=== PATIENT | female | born 1965 | race Two or more races ===

== ENCOUNTER 2018-04-08 09:53 | Day surgery (SDC) | payer OTHER ==
[2018-04-08] MEDS ORDERED: PROPOFOL 40 ML (11:39)
[2018-04-08] MEDS ORDERED: LIDOCAINE 100 MG SYRINGE (11:39)
[2018-04-08] MEDS ORDERED: FENTAnyl 50 MCG/ML VIAL (11:40)
== END 2018-04-08 17:34 | disposition home or self-care (01) ==
LOC: GIL 09:53
DX: K92.1 Melena (principal); K29.50 Unspecified chronic gastritis without bleeding; D12.0 Benign neoplasm of cecum; K21.9 Gastro-esophageal reflux disease without esophagitis; K64.8 Other hemorrhoids; K57.90 Diverticulosis of intestine, part unspecified, without perforation or abscess without bleeding; E11.9 Type 2 diabetes mellitus without complications; E66.01 Morbid (severe) obesity due to excess calories; Z68.41 Body mass index [BMI] 40.0-44.9, adult
CPT/HCPCS: 43239; 82962; 88305; 88312

== ENCOUNTER → 2018-04-26 | Outpatient (CLI) | payer OTHER | END | disposition home or self-care (01) | LOC: HKI 11:33 | DX: M17.12 Unilateral primary osteoarthritis, left knee (principal) | CPT/HCPCS: Z7500 ==

== ENCOUNTER → 2018-12-07 | Outpatient (CLI) | payer OTHER | END | disposition home or self-care (01) | LOC: HKI 14:21 | DX: M17.12 Unilateral primary osteoarthritis, left knee (principal) | CPT/HCPCS: 73564; 73564-LT ==